=== PATIENT | female | born 1965 | race Caucasian/White ===

== ENCOUNTER 2017-02-22 13:29 | Emergency (ER) | payer MEDICARE, OTHER ==
[2017-02-22] MEDS ORDERED: SODIUM CHLORIDE 0.9% (FLUSH) 10 ML SYG IV PRN (14:09)
[2017-02-22] MEDS ORDERED: KETOROLAC TROMETHAMINE INJ 30 MG/ML VIAL IV ONE (14:09)
[2017-02-22] MEDS ORDERED: ONDANSETRON INJ 4 MG/2 ML VIAL IV ONE (14:09)
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
[2017-02-22 15:05] VITALS: O2SAT 93
[2017-02-22 15:13] VITALS: TEMP 97.9
[2017-02-22] MEDS ORDERED: MORPHINE SULFATE INJ 10 MG/ML VIAL IV ONE (15:33)
[2017-02-22] MEDS ORDERED: HYDROcodone 7.5MG/APAP 325MG 1 EA TAB PO ONE (16:21)
--- NOTE | 2017-02-22 16:26 | RAD ---
EXAM DESCRIPTION: Abdomen Flat Upright CLINICAL HISTORY: abdominal pain COMPARISON: None. FINDINGS: AP supine and upright views of the abdomen show a nonspecific, nonobstructive bowel gas pattern with no evidence for free intraperitoneal air. Surgical clips from cholecystectomy are seen. No air-filled dilated loops of small bowel are seen. No significant air-fluid levels are identified. No obvious organomegaly is seen. No abnormal calcifications are seen in the expected location of the renal collecting systems. Visualized lung bases are unremarkable. Postsurgical changes to the mid to lower lumbar spine are seen. IMPRESSION: Nonspecific abdominal series Electronically signed by: Cuco Hunt MD 02/22/2017 4:25 PM [employer]
[2017-02-22 16:58] VITALS: BP 117/72
== END 2017-02-22 16:57 | disposition home or self-care (01) ==
LOC: ER 13:29
DX: R10.9 Unspecified abdominal pain (principal); R19.7 Diarrhea, unspecified; J44.9 Chronic obstructive pulmonary disease, unspecified; I10 Essential (primary) hypertension; E07.9 Disorder of thyroid, unspecified; E11.9 Type 2 diabetes mellitus without complications; K21.9 Gastro-esophageal reflux disease without esophagitis; Z87.891 Personal history of nicotine dependence
CPT/HCPCS: 36415; 74010; 80048; 80076; 81001; 84703; 85025; 93005; J1885; J2270; J2405